=== PATIENT | male | born 1950 | race Caucasian/White ===

== ENCOUNTER 2017-05-30 18:34 | Emergency (ER) | payer OTHER ==
[2017-05-30 19:43] LABS: Urine Bacteria Absent (Absent); Urine Bilirubin Negative (Negative); Urine Glucose Negative (Negative); Urine Nitrite Negative (Negative)
[2017-05-30 19:59] LABS: Hematocrit 40 % (42-52); Hemoglobin 13.8 g/dl (14.0-18.0); Mean Corpuscular HGB Conc 34 g/dl (31-36); Mean Corpuscular Hemoglobin 34 pg (27-31); Mean Corpuscular Volume 99 fL (80-94); Mean Platelet Volume 8 um3 (7.4-10.4); Red Blood Count 4.07 10^6/ul (4.0-5.4); Red Cell Distribution Width 13 % (10.5-15); White Blood Count 8.4 10^3/ul (3.5-10.8)
[2017-05-30 20:10] LABS: ALT 16 U/L (7-52); AST 19 U/L (13-39); Albumin 4.3 g/dL (3.2-5.2); Alkaline Phosphatase 32 U/L (34-104); Anion Gap 6 mmol/L (2-11); BUN/Creatinine Ratio 16.5 (8-20); Blood Urea Nitrogen 17 mg/dL (6-24); C Reactive Protein < 1.00 mg/L (< 5.00); CO2 Carbon Dioxide 27 mmol/L (22-32); Calcium 9.1 mg/dL (8.6-10.3); Chloride 103 mmol/L (101-111); EGFR African American 92.6 (>60); Globulin 2.6 g/dL (2-4); Glucose 101 mg/dL (70-100); Potassium 3.6 mmol/L (3.5-5.0); Sodium 136 mmol/L (133-145); Total Protein 6.9 g/dL (6.4-8.9)
--- NOTE | 2017-05-30 20:20 | RAD ---
INDICATION: Right flank abdominal pain. COMPARISON: There are no prior studies available for comparison. TECHNIQUE: A CT scan of the abdomen and pelvis was performed without intravenous or oral contrast. Contiguous axial sections were obtained from the lung bases through the symphysis pubis. Images were reconstructed in the coronal and sagittal planes. FINDINGS: The lung bases are clear. No pleural effusion is present. The liver and spleen are normal in size. There is a small 0.7 cm hypodense lesion present in the superior portion of the right hepatic lobe which is too small to characterize by CT although likely represents a cyst. No calcified gallstones are seen. The pancreas appears to be within normal limits. The adrenal glands and kidneys are normal in size. No renal calculi or hydronephrosis is seen. No ureteral or bladder calculi are seen. The aorta is normal in caliber with moderate calcific plaque present. No significant enlarged retroperitoneal lymph nodes are seen. The stomach, small and large bowel appear nondistended. The appendix is within normal limits. There is no evidence for diverticulitis or colitis. There is a small periumbilical hernia containing fat. No free intraperitoneal air or fluid is seen. No significant focal osseous abnormality is seen. IMPRESSION: NO EVIDENCE FOR ACUTE FINDING OR CAUSE FOR THE PATIENT'S ABDOMINAL PAIN IS SEEN.
[2017-05-30] MEDS ORDERED: Ciprofloxacin TAB* 500 MG PO ONE ×2 (21:48)
[2017-05-30 22:17] VITALS: BP 141/87
--- NOTE | 2017-06-02 16:57 | ED ---
Jennifer Tamayo Abhishek, scribed for Anand Brown MD on 05/30/17 at 2018 . Abdominal Pain/Male - HPI Summary HPI Summary: This patient is a 17 year old M presenting to [facility] accompanied by with a chief complaint of hematuria since 1838. The CC is described as intermittent. The patient rates the pain 3/10 in severity. Symptoms aggravated at rest but not by movement. Symptoms alleviated by nothing. Patient reports abd pain on the right lower flank. PMHx includes congenital heart. FHx of CAD, MA, and denies diabetes. - History of Current Complaint Chief Complaint: EDFlankPain Stated Complaint: BLOOD IN URINE Time Seen by Provider: 05/30/17 19:23 Hx Obtained From: Patient Onset/Duration: Sudden Onset Timing: Constant Severity Initially: Mild Severity Currently: Mild Pain Intensity: 3 Pain Scale Used: 0-10 Numeric Location: Flank Character: Other: - intermittent Aggravating Factor(s): Other: - Symptoms aggravated at rest but not by movement Alleviating Factor(s): Nothing Associated Signs And Symptoms: Positive: Urinary Symptoms - hematuria, Other - right lower flank abd pain - Allergies/Home Medications Allergies/Adverse Reactions: Allergies Allergy/AdvReac Type Severity Reaction Status Date / Time Amoxicillin Allergy Hives Verified 05/30/17 19:22 PMH/Surg Hx/FS Hx/Imm Hx Endocrine/Hematology History: Denies: Hx Diabetes Cardiovascular History: Reports: Hx Congenital Heart Disease Infectious Disease History: No Infectious Disease History: Denies: Traveled Outside the [place] in Last 30 Days - Family History Known Family History: Positive: Cardiac Disease - CAD, [place], Hypertension Negative: Diabetes - Social History Alcohol Use: Daily Alcohol Amount: 1-2 drinks Substance Use Type: Reports: Marijuana Smoking Status (MU): Never Smoked Tobacco Review of Systems Constitutional: Negative Eyes: Negative ENT: Negative Cardiovascular: Negative Respiratory: Negative Positive: Abdominal Pain - right lower flank abd pain Positive: hematuria Musculoskeletal: Negative Skin: Negative Neurological: Negative Psychological: Normal All Other Systems Reviewed And Are Negative: Yes Physical Exam - Summary Physical Exam Summary: Appearance: Well-appearing, no pain distress IF BMI > 30 = obese Skin: Warm, dry, color reflects adequate perfusion Head/face: Nml head/face Eyes: Nml eyes ENT: Nml ENT Neck: Supple, non-tender Respiratory: CTA, breath sound present Cardiovascular: RRR Abdomen: Abd soft, non-tender, Bowel: Bowel sounds + Musculoskeletal: Nml musculoskeletal Neurological: Nml neuro (unless it is a neuro Pt, then click the first 4) Psychiatric: Nml psychiatric, affect/mood appropriate Triage Information Reviewed: Yes Vital Signs On Initial Exam: Initial Vitals Temp Pulse Resp BP Pulse Ox 98.5 F 79 18 167/83 99 05/30/17 18:38 05/30/17 18:38 05/30/17 18:38 05/30/17 18:38 05/30/17 18:38 Vital Signs Reviewed: Yes - [place] Coma Scale Coma Scale Total: 15 Diagnostics - Vital Signs Vital Signs Temp Pulse Resp BP Pulse Ox 05/30/17 18:38 98.5 F 79 18 167/83 99 - Laboratory Lab Results: Lab Results 05/30/17 Range/Units 19:25 Urine Color Red A Urine Appearance Cloudy Urine pH 6.0 (5-9) Ur Specific [place] 1.012 (1.010-1.030) Urine Protein 2+(100 mg/dl) H (Negative) Urine Ketones Negative (Negative) Urine Blood 3+ H (Negative) Urine Nitrate Negative (Negative) Urine Bilirubin Negative (Negative) Urine Urobilinogen Negative (Negative) Ur Leukocyte Esterase Negative (Negative) Urine WBC (Auto) 3+(>20/hpf) H (Absent) Urine RBC (Auto) 3+(>10/hpf) H (Absent) Urine Bacteria Absent (Absent) Urine Glucose Negative (Negative) Result Diagrams: 05/30/17 19:45 05/30/17 19:45 Lab Statement: Any lab studies that have been ordered have been reviewed, and results considered in the medical decision making process. - CT CT A/P CT Interpretation Completed By: Radiologist - CT A/P reveals NO EVIDENCE FOR ACUTE FINDING OR CAUSE FOR THE PATIENT'S ABDOMINAL PAIN IS SEEN. ED physician has reviewed this radiology report and agrees. Abdominal Pain Fem Course/Dx - Course Course Of Treatment: Mr. Fuentes presented with intermittent flank pain for a few days. He R/O for a stone but looked like he had a pyelo and I treated him with antibiotics. - Diagnoses Provider Diagnoses: Pyelonephritis Discharge - Discharge Plan Condition: Stable Disposition: HOME Prescriptions: Ciprofloxacin TAB* [Cipro Tab*] 500 mg PO BID #10 tab Patient Education Materials: Urinary Tract Infection in Men (ED) Referrals: No Primary Care Phys,NOPCP [Primary Care Provider] - (Follow up with the PCP within 2 to 3 days) The documentation as recorded by the Jennifer alvarenga Abhishek accurately reflects the service I personally performed and the decisions made by me, Anand Brown MD.
== END 2017-05-30 22:18 | disposition home or self-care (01) ==
LOC: ED 18:34
DX: N10 Acute pyelonephritis (principal); R31.9 Hematuria, unspecified; R10.31 Right lower quadrant pain; Z88.1 Allergy status to other antibiotic agents; Q24.9 Congenital malformation of heart, unspecified; F12.90 Cannabis use, unspecified, uncomplicated
CPT/HCPCS: 36415; 74176; 80053; 81003; 81015; 85025; 86140; 99283; A9270-GY